=== PATIENT | female | born 1965 | race Caucasian/White ===

== ENCOUNTER 2016-10-22 07:30 | Day surgery (SDC) | payer OTHER ==
[~2016-10-22 07:30] MED LIST: DIPHENHYDRAMINE HCL 50 MG/ML VIAL ONE; EPINEPHRINE INJ 1 MG/10 ML DISP.SYRIN ONE; FLUMAZENIL INJ 0.5 MG/5 ML VIAL ONE; GLUCAGON,HUMAN RECOMB 1 MG INJ ONE; MIDAZOLAM 2 MG/2 ML INJ ONE; NALOXONE HCL INJ/PF 0.4 MG/1 ML SDV ONE; ONDANSETRON HCL INJ/PF 4 MG/2 ML SDV ONE
[2016-10-22] MEDS: MIDAZOLAM 2 MG/2 ML INJ ONE ×3 (09:10→09:18)
[2016-10-22] MEDS: FENTANYL CITRATE INJ/PF 100 MCG/2 ML AMPUL ONE ×2 (09:12→09:14)
--- NOTE | 2016-10-22 09:35 | Operative Report ---
Operative Report DATE OF SURGERY: 10/22/16 Operative Report: The risks benefits and alternatives of the procedure explained to the patient in detail and informed consent is obtained.A GIF Olympus video scope was inserted into the patient's mouth and hypopharynx, the esophagus is identified intubated and insufflated, the scope was then advanced through the esophagus stomach and duodenum,retroflexion maneuver is done the esophagus stomach and first and second portions of the duodenum examined PREOPERATIVE DIAGNOSIS: Epigastric pain, nausea vomiting. Status post gastric bypass operation in the past. POSTOPERATIVE DIAGNOSIS: Channel ulcer, stricture. Balloon dilation of the gastric outlet. 12 mm, 13.5 mm, 15 mm dilation performed. Biopsy obtained in pouch, rule out Helicobacter pylori OPERATION: EGD with dilation. EGD with biopsy SURGEON: ARMIDA WELLER ANESTHESIA: Moderate Sedation - 4 mg of Versed, 75 mcg of fentanyl. Conscious sedation monitoring time 30 minutes. TISSUE REMOVED OR ALTERED: Specimen obtained to rule out Helicobacter pylori COMPLICATIONS: None. ESTIMATED BLOOD LOSS: None. INTRAOPERATIVE FINDINGS: As described above. PROCEDURE: Patient tolerated procedure well. No immediate postprocedure complications are noted. Patient discharged in good condition. Discharge date 10/22/2016. Discharge diet: Regular. Discharge activity: Regular. 6 week repeat dilation required. Started on PPI. We will wait on pathology. Patient is instructed to call the office or proceed to the emergency room should there be any further problems or questions.
[2016-10-22 11:08] VITALS: BP 95/68
== END 2016-10-22 11:05 | disposition home or self-care (01) ==
LOC: END 07:30
PROVIDERS: ATTEND Internal Medicine Gastroenterology
PROC: 0DB68ZX Excision of Stomach, Via Natural or Artificial Opening Endoscopic, Diagnostic (ICD-10-PCS; principal; 2016-10-22 09:00)
PROC: 0D558ZZ Destruction of Esophagus, Via Natural or Artificial Opening Endoscopic (ICD-10-PCS; 2016-10-22 09:00)
DX: K29.50 Unspecified chronic gastritis without bleeding (principal); K22.2 Esophageal obstruction; E78.2 Mixed hyperlipidemia; E16.2 Hypoglycemia, unspecified; Z79.899 Other long term (current) drug therapy; Z88.0 Allergy status to penicillin; Z87.892 Personal history of anaphylaxis
CPT/HCPCS: 43239; 43249; 88305 ×2; C1726; J2250; J3010; J0171; J1200; J1610; J2310; J2405; J3490

== ENCOUNTER 2016-11-24 07:33 | Day surgery (SDC) | payer OTHER ==
[~2016-11-24 07:33] MED LIST changes: +FENTANYL CITRATE INJ/PF 100 MCG/2 ML AMPUL ONE
[2016-11-24] MEDS: MIDAZOLAM 2 MG/2 ML INJ ONE ×2 (08:24→08:28)
--- NOTE | 2016-11-24 08:47 | Operative Report ---
Operative Report DATE OF SURGERY: 11/24/16 Operative Report: The risks benefits and alternatives of the procedure explained to the patient in detail and informed consent is obtained.A GIF Olympus video scope was inserted into the patient's mouth and hypopharynx, the esophagus is identified intubated and insufflated, the scope was then advanced through the esophagus stomach and duodenum, retroflexion maneuver is done, the esophagus stomach and first and second portions of the duodenum examined PREOPERATIVE DIAGNOSIS: Pyloric stricture, pyloric ulcer POSTOPERATIVE DIAGNOSIS: Healed pyloric ulcer. Some mild narrowing status post dilatation from 13.5 mm to 15 mm. Esophagitis versus Molina's esophagus status post biopsy. OPERATION: EGD with dilatation. EGD with biopsy SURGEON: ARMIDA WELLER ANESTHESIA: Moderate Sedation - 4 mg of Versed, 50 mcg of fentanyl. Conscious sedation monitoring time 30 minutes. TISSUE REMOVED OR ALTERED: As noted above. COMPLICATIONS: None. ESTIMATED BLOOD LOSS: None. INTRAOPERATIVE FINDINGS: As described above. PROCEDURE: Patient tolerated procedure well. No immediate postprocedure complications are noted. Patient discharged in good condition. Discharge date 11/24/2016. Discharge diet: Regular. Discharge activity: Regular. 2-3 week follow-up to discuss findings. Patient is instructed to call the office or proceed to the emergency room should there be any further problems or questions. We will wait on pathology.
[2016-11-24 10:51] VITALS: BP 95/62
== END 2016-11-24 09:45 | disposition home or self-care (01) ==
LOC: END 07:33
PROVIDERS: ATTEND Internal Medicine Gastroenterology
PROC: 0DB48ZX Excision of Esophagogastric Junction, Via Natural or Artificial Opening Endoscopic, Diagnostic (ICD-10-PCS; principal; 2016-11-24 08:30)
DX: K20.9 Esophagitis, unspecified (principal); Z09 Encounter for follow-up examination after completed treatment for conditions other than malignant neoplasm; Z87.11 Personal history of peptic ulcer disease; K91.89 Other postprocedural complications and disorders of digestive system; E78.5 Hyperlipidemia, unspecified; F17.210 Nicotine dependence, cigarettes, uncomplicated; D69.3 Immune thrombocytopenic purpura; Z79.899 Other long term (current) drug therapy; Z80.0 Family history of malignant neoplasm of digestive organs; Z87.892 Personal history of anaphylaxis
CPT/HCPCS: 43239; 43249; 88305 ×2; C1726; J2250; J3010; J0171; J1200; J1610; J2310; J2405; J3490